=== PATIENT | male | born 1965 | race Caucasian/White ===

== ENCOUNTER → 2017-06-03 | Outpatient (CLI) | payer OTHER | LOC: LAB 17:36 | DX: S71.001A Unspecified open wound, right hip, initial encounter (principal); L08.9 Local infection of the skin and subcutaneous tissue, unspecified ==

== ENCOUNTER 2017-08-16 08:30 | Outpatient (RCR) | payer OTHER | END 2017-08-16 09:00 | disposition home or self-care (01) | LOC: PT 08:30 | DX: Z47.89 Encounter for other orthopedic aftercare (principal) ==